=== PATIENT | male | born 1990 | race Caucasian/White ===

== ENCOUNTER 2021-10-02 18:11 | Emergency (ER) | payer OTHER, MEDICAID, SELFPAY ==
[2021-10-02 18:22] VITALS: BP 148/97; PULSE 82; RESP 18; TEMP 36.6; O2SAT 100; BMI 23.5
[2021-10-02 18:51] LABS: Ur Creatinine Normal (Normal); Ur Specific Gravity Normal (Normal); Urine pH Normal (Normal)
[2021-10-02 18:52] LABS: UR Morphine/Opiate cutoff 300 Negative (Negative); Urine Amphetamines Negative (Negative); Urine Barbiturates Negative (Negative); Urine Benzodiazepines Negative (Negative); Urine Cocaine Negative (Negative); Urine MDMA Negative (Negative); Urine Methadone Negative (Negative); Urine Methamphetamines Negative (Negative); Urine Oxycodone Negative (Negative); Urine Phencyclidine Negative (Negative); Urine Tetrahydrocannabinol Negative (Negative); Urine Tricyclic Antidepressant Negative (Negative)
--- NOTE | 2021-10-02 18:53 | ED_ITS ---
HPI - Recheck/Abnormal Lab/Rx <Cayden Wakefield PA-C - Last Filed: 10/02/21 18:58> General Chief Complaint: Recheck/Abnormal Lab/Rx Stated Complaint: needs a UA; r/o intoxication Time Seen by Provider: 10/02/21 18:38 Source: patient Mode of arrival: Ambulatory History of Present Illness HPI narrative: Patient presents to the ED for urinary test and ETOH evaluation patient reports having some legal issues with custody of his children and at the request of his an health director he requested these tests to validate no alcohol and no illicit drug use. Patient denies any complaints no other reported injuries. Related Data Allergies Allergy/AdvReac Type Severity Reaction Status Date / Time lorazepam [From Ativan] AdvReac Verified 10/02/21 18:22 Review of Systems <Cayden Wakefield PA-C - Last Filed: 10/02/21 18:58> Review of Systems ROS Unobtainable: All systems reviewed & are unremarkable except as noted in HPI and below Constitutional Constitutional: Denies chills, Denies fatigue, Denies fever(s), Denies frequent falls, Denies lethargy and Denies weakness Eyes Eyes: Denies change in vision, Denies eye discharge, Denies irritation and Denies loss of vision ENT Ears, Nose, Mouth, and Throat: Denies change in voice, Denies dizziness, Denies neck pain, Denies sore throat and Denies throat swelling Cardiovascular Cardiovascular: Denies chest pain, Denies irregular heart rhythm, Denies lightheadedness, Denies palpitations, Denies dyspnea, Denies dyspnea on exertion and Denies orthopnea Respiratory Respiratory: Denies cough, Denies dyspnea, Denies dyspnea on exertion and Denies wheezing Gastrointestinal Gastrointestinal: Denies abdominal pain, Denies change in bowel habits, Denies diarrhea, Denies nausea and Denies vomiting Genitourinary Genitourinary: Denies hematuria, Denies flank pain, Denies urinary incontinence and Denies urinary urgency Musculoskeletal Musculoskeletal: Denies back pain, Denies muscle weakness, Denies neck pain, Denies numbness and Denies tingling Integumentary/Breasts Skin/Breast: Denies pruritus, Denies erythema, Denies rash and Denies wounds Neurologic Neurologic: Denies behavioral changes, Denies confusion, Denies dizziness, Denies frequent falls, Denies loss of vision, Denies numbness, Denies tingling and Denies weakness Psychiatric Psychiatric: Denies anxiety, Denies behavioral changes, Denies confusion, Denies depression, Denies homicidal ideation and Denies suicidal ideation Endocrine Endocrine: Denies fatigue, Denies flushing and Denies palpitations Hematologic/Lymphatic Hematologic/Lymphatic: Denies easy bruising Allergic/Immunologic Allergic/Immunologic: Denies urticaria, Denies throat swelling and Denies wheezing Patient History <Cayden Wakefield PA-C - Last Filed: 10/02/21 18:58> Social History Smoking Status: Never smoker Smoking Status: Never smoker Substance Use Type: does not use Exam <Cayden Wakefield PA-C - Last Filed: 10/02/21 18:58> Initial Vital Signs Initial Vital Signs: Vital Signs Temperature 97.9 F 10/02/21 18:22 Pulse Rate 82 10/02/21 18:22 Respiratory Rate 18 10/02/21 18:22 Blood Pressure 148/97 H 10/02/21 18:22 Pulse Oximetry 100 10/02/21 18:22 Const General: cooperative, healthy appearing, comfortable and well developed Nutritional Appearance: average body habitus and well nourished Orientation: Orientation [facility] Head: normal to inspection Ears: hearing grossly normal bilaterally Nose: external nose normal and nares normal Face and sinus: normal facial exam and sinuses nontender Mouth: oral mucosae normal Teeth and gingiva: dentition normal Eyes General: appearance normal, both eyes and all related structures Pupils: PERRL Resp Effort & Inspection: normal respiratory effort Auscultation: clear to auscultation bilaterally Percussion: percussion normal Cardio Palpation: normal PMI Rate: regular rate Rhythm: regular rhythm Course <Cayden Wakefield PA-C - Last Filed: 10/02/21 18:58> Orders Ordered: ED Orders 10/02/21 18:27 Urine Drug Screen, Rapid Stat 10/02/21 18:40 Ethanol (ETOH) Stat Vital Signs Vital signs: Vital Signs - 8 hr 10/02/21 18:22 10/02/21 19:18 Temperature 97.9 F Pulse Rate 82 70 Respiratory Rate 18 Blood Pressure 148/97 H 135/82 Pulse Oximetry 100 99 MDM - Recheck/Abnormal Lab/Rx <Cayden Wakefield PA-C - Last Filed: 10/02/21 18:58> Differential Diagnosis Differential diagnosis: Likely other Lab Data Labs: Lab Results 10/02/21 10/02/21 Range/Units 18:27 18:40 U Opiates 300ng/mL cut Negative (Negative) Ur Oxycodone Screen Negative (Negative) Urine Methadone Screen Negative (Negative) Ur Barbiturates Screen Negative (Negative) U Tricyclic Antidepress Negative (Negative) Ur Phencyclidine Scrn Negative (Negative) Ur Amphetamines Screen Negative (Negative) U Methamphetamines Scrn Negative (Negative) Ur MDMA Scrn (Ecstasy) Negative (Negative) U Benzodiazepines Scrn Negative (Negative) Urine Cocaine Screen Negative (Negative) U Marijuana (THC) Screen Negative (Negative) Ethyl Alcohol < 10 ( - 10) mg/dL [facility] Narrative Medical decision making narrative: Patient was evaluated. Having no complaint request a urine drug screen EtOH which was performed patient will be discharged Discharge Plan Departure Patient Disposition: Home Clinical Impression: Encounter for drug screening Activity Restrictions/Additional Instructions: No restrictions Referrals: Noe Myrick MD [Primary Care Provider] -
[2021-10-02 19:02] LABS: Ethanol (ETOH) < 10 mg/dL
[2021-10-02 19:18] VITALS: BP 135/82; PULSE 70; O2SAT 99
== END 2021-10-02 19:19 | disposition home or self-care (01) ==
PROVIDERS: Emergency Medicine; Emergency Provider Physician Assistant; PCP Family Medicine
DX: Z02.83 Encounter for blood-alcohol and blood-drug test (principal)
CPT/HCPCS: 36415; 80305; 80320; 99283

== ENCOUNTER → 2022-10-06 14:57 | Outpatient (CLI) | payer OTHER, MEDICAID, SELFPAY ==
--- NOTE | 2022-10-06 14:58 | DI.MRI.S_ITS ---
PROCEDURE: MR CERVICAL SPINE WO CON INDICATIONS: BACK AND NECK PAIN TECHNIQUE: Noncontrast sagittal T1 spin echo and T2 fast spin echo, sagittal STIR, foraminal oblique sagittal T2 fast spin echo, and axial gradient echo or T2 fast spin echo through the cervical spine. COMPARISON: [facility], MR, MR THORACIC SPINE WO CON, 10/06/2022, 15:10. FINDINGS: Image quality: Excellent. Alignment and Curvature: There is mild cervical straightening. Bone Marrow: Marrow demonstrates normal overall signal. Spinal Cord: Visualized spinal cord has normal size and signal. No cerebellar tonsillar herniation. Paraspinous Soft Tissues: No paravertebral masses. Prevertebral soft tissues are normal in thickness. Discs: Minimal disc desiccation at C5-6 and C6-7. C2-C3: No disc bulge, spinal stenosis or foraminal narrowing. C3-C4: No disc bulge, spinal stenosis or foraminal narrowing. C4-C5: No disc bulge, spinal stenosis or foraminal narrowing. C5-C6: No disc bulge, spinal stenosis or foraminal narrowing. C6-C7: Minimal disc bulge without spinal stenosis or foraminal narrowing. C7-T1: No disc bulge, spinal stenosis or foraminal narrowing. IMPRESSION: Minimal disc bulge at C6-7. Dictated by: Duyen Mims M.D. on 10/06/2022 at 18:15 Approved by: Duyen Mims M.D. on 10/06/2022 at 18:16
--- NOTE | 2022-10-06 14:58 | DI.MRI.S_ITS ---
PROCEDURE: MR LUMBAR SPINE WO CON INDICATIONS: BACK AND NECK PAIN TECHNIQUE: Noncontrast sagittal T1 spin echo and T2 fast echo, sagittal STIR, and T2 fast spin echo through the lumbar spine. In cases with scoliosis, additional coronal T2 fast spin echo may be performed. COMPARISON: None. FINDINGS: Normal alignment. Superior L3 endplate Schmorl node and Modic 1 edematous change. Conus normal in appearance. Soft tissues normal. T12-L1: Normal appearance. L1-L2: Normal appearance. L2-L3: Normal appearance. L3-L4: Normal appearance. L4-L5: Normal appearance. L5-S1: Normal appearance. IMPRESSION: Schmorl node with adjacent superior endplate edema at L3. This is a potential source of non-radicular back pain. Dictated by: Beka Curiel M.D. on 10/06/2022 at 19:41 Approved by: Beka Curiel M.D. on 10/11/2022 at 18:36
--- NOTE | 2022-10-06 14:58 | DI.MRI.S_ITS ---
PROCEDURE: MR THORACIC SPINE WO CON INDICATIONS: BACK AND NECK PAIN TECHNIQUE: Noncontrast sagittal T1 spine echo and T2 fast spin echo, sagittal STIR, and T2 fast spin echo through the thoracic spine. COMPARISON: [facility], MR, MR LUMBAR SPINE WO CON, 10/06/2022, 15:10. [facility], MR, MR CERVICAL SPINE WO CON, 10/06/2022, 15:10. FINDINGS: Image quality: Excellent. Alignment and Curvature: There is normal bony alignment. Bone Marrow: Marrow is of normal overall signal. No acute vertebral body compression fractures. Spinal Cord: Visualized spinal cord is normal in size and signal. Paraspinous Soft Tissues: No paravertebral masses. Miscellaneous: On axial images, central canal and foramina appear widely patent at all scanned levels. IMPRESSION: Unremarkable exam. Dictated by: Duyen Mims M.D. on 10/06/2022 at 18:14 Approved by: Duyen Mims M.D. on 10/06/2022 at 18:14
== END ==
PROVIDERS: PCP Physician Assistant; Referring Provider Physician Assistant; Visit Provider Physician Assistant
DX: M51.46 Schmorl's nodes, lumbar region (principal); M54.6 Pain in thoracic spine; M54.2 Cervicalgia; M54.50 Low back pain, unspecified; G89.29 Other chronic pain
CPT/HCPCS: 72141; 72146; 72148